=== PATIENT | female | born 1965 | race Caucasian/White ===

== ENCOUNTER 2024-05-18 10:21 | Outpatient (CLI) | payer MEDICAID, SELFPAY ==
[2024-05-18 10:43] LABS: Basophils Absolute Auto 0.05 K/mm3 (0.00-0.10); Basophils Percent Auto 0.5 % (0.0-1.0); Eosinophils Absolute Auto 0.32 K/mm3 (0.02-0.50); Eosinophils Percent Auto 3.5 % (1.0-6.0); Hematocrit 39.7 % (35.0-49.0); Hemoglobin 13.7 g/dL (12.0-15.0); Immature Granulocyte Absolute 0.04 K/mm3 (0.00-0.00); Immature Granulocyte Percent A 0.4 % (0.0-0.0); Lymphocytes Absolute Auto 2.95 K/mm3 (1.10-4.50); Lymphocytes Percent Auto 31.9 % (18.0-42.0); Mean Corpuscular HGB Conc 34.5 g/dL (32-36); Mean Corpuscular Hemoglobin 31.7 pg (27.0-31.0); Mean Corpuscular Volume 91.9 fL (78.0-102.0); Mean Platelet Volume 9.3 fl (9.2-11.8); Monocytes Absolute Auto 0.55 K/mm3 (0.10-0.90); Neutrophils Absolute Auto 5.33 K/mm3 (1.70-7.20); Neutrophils Percent Auto 57.7 % (50.0-70.0); Platelet Count Result 252 K/mm3 (150-420); Red Blood Count 4.32 M/mm3 (4.20-5.40); Red Cell Distribution Width 13.3 % (11.6-14.4); White Blood Count 9.2 K/mm3 (4.8-10.8)
[2024-05-18 11:22] LABS: Alanine Aminotransferase 23 U/L (14-59); Albumin Level 3.8 g/dL (3.4-5.0); Alkaline Phosphatase 74 U/L (46-116); Anion Gap 9 mmol/L (4-12); Aspartate Amino Transferase 25 U/L (15-37); Bilirubin,Total 0.8 mg/dL (0.00-1.00); Blood Urea Nitrogen 29 mg/dL (7-18); Calcium 9.6 mg/dL (8.5-10.1); Carbon Dioxide 29 mmol/L (21-32); Chloride 102 mmol/L (98-108); Cholesterol 157 mg/dL (0-200); Estimated Glomerular Filt Rate 41; Glucose 91 mg/dL (70-99); HDL Direct 60 mg/dL (40-60); LDL Cholesterol Calculated 79 mg/dL (<130); Osmolality Calculated 295 mOsm/kg (285-295); Potassium 4.3 mmol/L (3.5-5.1); Sodium 140 mmol/L (136-145); Total Protein 7.2 g/dL (6.4-8.2); Triglycerides 91 mg/dL (0-150)
== END 2024-05-18 10:22 | disposition home or self-care (01) ==
PROVIDERS: PCP Family Medicine; Visit Provider Family Medicine
DX: E03.9 Hypothyroidism, unspecified (principal); I10 Essential (primary) hypertension
CPT/HCPCS: 36415; 80053; 80061; 84443; 85025

== ENCOUNTER 2024-05-20 10:21 | Outpatient (CLI) | payer MEDICAID, SELFPAY ==
--- NOTE | ~2024-05-20 | CT_ITS ---
EXAMINATION:CT lung screening DATE: 05/20/2024 10:38 INDICATION: Personal history of nicotine dependence. Current smoker with 30 pack year history. TECHNIQUE: Computed tomography (CT) of the chest was performed without intravenous contrast. Automate d exposure control and iterative reconstruction technique were employed. The dose-length product (DLP ) was 103.74 mGy-cm. COMPARISON: None. FINDINGS: There is mild emphysema. There is a 2 mm nodule in right upper lobe. Calcified right lung n odules are consistent with old granulomatous disease. There is mild atelectasis bilaterally. There is peripheral septal thickening in right lower lobe. No pleural effusion. The heart size is normal. The re are coronary artery calcifications. No pericardial effusion. There is severe thoracic spondylosis. IMPRESSION: 1. Lung-RADS category 2: Benign appearance or behavior. Continue annual screening with noncontrast lo w-dose chest CT in 12 months. Reviewed, dictated and finalized at location A. TS ANNOUNCER IMPRESSION: 1. Lung-RADS category 2: Benign appearance or behavior. Continue annual screeni ng with noncontrast low-dose chest CT in 12 months.
== END 2024-05-20 10:22 | disposition home or self-care (01) ==
PROVIDERS: PCP Family Medicine; Visit Provider Family Medicine
DX: Z12.2 Encounter for screening for malignant neoplasm of respiratory organs (principal); Z87.891 Personal history of nicotine dependence
CPT/HCPCS: 71271

== ENCOUNTER 2024-05-28 13:13 | Outpatient (CLI) | payer OTHER, SELFPAY ==
--- NOTE | ~2024-05-28 | XR_ITS ---
Right Knee Technique: AP, lateral, and sunrise views were obtained. Clinical History: Pain Findings: No fracture or dislocation is seen. Osseous alignment is anatomic. Mild degenerative change s of medial and lateral compartment. There is a 9 mm loose body posterior to the distal femur mediall y. No joint effusion is seen. Impression: Degenerative changes with 9 mm loose body, as above. Reviewed, dictated and finalized at location . ERN PAINTER Impression: Degenerative changes with 9 mm loose body, as above.
== END 2024-05-28 13:14 | disposition home or self-care (01) ==
PROVIDERS: PCP Family Medicine; Visit Provider Family Medicine
DX: M25.561 Pain in right knee (principal); M23.41 Loose body in knee, right knee
CPT/HCPCS: 73562

== ENCOUNTER 2024-07-08 13:40 | Outpatient (CLI) | payer OTHER, SELFPAY ==
--- NOTE | ~2024-07-08 | MM_ITS ---
EXAMINATION: MM screening tj BI w danial HISTORY: Screening mammogram TECHNIQUE: Craniocaudal and mediolateral oblique 3-D tomosynthesis images were obtained and synthetic 2-D images were generated. CAD analysis was submitted and interpreted. COMPARISON: No prior mammogram is available for comparison at this institution. BREAST PARENCHYMAL COMPOSITION:Not Dense. The breasts are almost entirely fatty FINDINGS: No suspicious mass, calcification, or architectural distortion are identified in either romario ast to suggest malignancy. There has been no suspicious interval change. IMPRESSION: No mammographic evidence of malignancy. Recommend routine screening mammography in one year. BI-RADS Category 1: Negative Reviewed, dictated and finalized at location . O POOL SUPERVISOR
== END 2024-07-08 13:41 | disposition home or self-care (01) ==
PROVIDERS: PCP Family Medicine; Visit Provider Family Medicine
DX: Z12.31 Encounter for screening mammogram for malignant neoplasm of breast (principal)
CPT/HCPCS: 77063; 77067

== ENCOUNTER 2024-07-14 00:50 | Day surgery (SDC) | payer OTHER, SELFPAY ==
[2024-06-08 14:30] VITALS: BMI 28.3
--- NOTE | 2024-06-29 11:19 | SUR.PREOP ---
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 Pt will be rescheduled.
--- NOTE | 2024-07-01 13:40 | PC.NURSE ---
PT CALLED TO UPDATE NEW PROCEDURE DATE AND TIME, PT STATES UNDERSTANDING, PT STATES ALL MEDICAL HISTORY REMAINS THE SAME FROM PREVIOUS PAT CALL, CALL UPDATED. PT DENIES ANY QUESTIONS.
--- NOTE | 2024-07-13 10:06 | P.PNAN_ITS ---
Anes - Initial Pre Proc Eval Procedure: Operation Date: 07/14/24 11:00 Proposed Procedures p Screening Colonoscopy - Rohit Soto DO Date/Time: 07/13/24 10:06 Surgeon: Rohit Soto DO Pre Op Diagnosis: Screening for malignant neoplasm of colon Patient Data Age: 59 Gender: F Height: 1.6 m Weight: 72.6 kg Allergies Allergy/AdvReac Type Severity Reaction Status Date / Time No Known Allergies Allergy Verified 07/14/24 09:49 Home Medications ?Medication ?Instructions ?Recorded ?Confirmed ?Type albuterol sulfate 90 mcg/actuation 1 puff inhalation Q4H PRN 05/18/24 07/14/24 Rx aerosol inhaler shortness of breath or wheezing #8.5 grams fluticasone 100 mcg-salmeterol 50 1 inh inhalation Q12H #60 ea 05/18/24 07/14/24 Rx mcg/dose blistr powdr for inhalation (Advair Diskus) meloxicam 15 mg tablet 15 mg PO DAILY 05/18/24 07/14/24 History carvedilol 3.125 mg tablet 3.125 mg PO BID #180 tabs 06/15/24 07/14/24 Rx hydrochlorothiazide 25 mg tablet 25 mg PO DAILY #90 tabs 06/15/24 07/14/24 Rx lisinopril 20 mg tablet 20 mg PO DAILY #90 tabs 06/15/24 07/14/24 Rx atorvastatin 40 mg tablet 20 mg (1/2 x 40 mg) PO QHS #45 tabs 06/18/24 07/14/24 Rx Patient hx anesthesia problems: none Family hx anesthesia problems: none Results Review: All pre-operative results and documents have been reviewed as part of the pre- operative evaluation. [facility] Past Medical History Medical History (Updated 07/13/24 @ 10:07 by Russ Anne DO) Hepatitis C treated Hyperlipidemia COPD (chronic obstructive pulmonary disease) HTN (hypertension) Osteoarthritis CVA (cerebral vascular accident) 2 times Bursitis Family History Family History Mother Heart disease Father Alzheimer dementia Social History Social History Smoking packs per day: 0.5 Smoking cigarettes per day: 10.0 Years smoked: 50 Smoking pack-years: 25.00 Smoking status: Current every day smoker Tobacco type: cigarettes Second hand tobacco smoke exposure: Yes Alcohol intake: current Drinks per week: 21 Alcohol use details: 3 shots a day Substance use: current Substance use type: marijuana Other substance usage details: Every once in awhile Living arrangements: with family Spiritual care concerns: No Anes - Eval Final PreProcedure Day of Procedure 07/13/24 10:06 Patient weight: overweight Heart: regular rate and rhythm Lungs: clear to auscultation Airway: Mallampati scale class II Neurological: alert and oriented Last oral intake: >/= 8 hours ASA classification: III Emergent: no Anesthetic plan: proceed Anesthesia type and monitoring: general GIVS and standard monitoring Results Review: All pre-operative results and documents have been reviewed as part of the pre-operative evaluation. Informed Consent: The patient's anesthetic plan and its attendant risks and benefits were discussed with the patient/family/POA. Questions were solicited and answers provided to the satisfaction of the patient/family/POA.
[2024-07-14 09:40] VITALS: BP 151/95; PULSE 77; RESP 16; TEMP 36.3; O2SAT 99; BMI 29.7
[2024-07-14] MEDS: LACTATED RINGERS 1,000 ML 150 ML IV CONT (10:02)
--- NOTE | 2024-07-14 10:33 | P.HP_ITS ---
H&P: HPI History of Present Illness Date/Time: 07/14/24 10:33 Chief Complaint: positive Cologuard Narrative: this is a 59-year-old woman who presents for colonoscopy. She has never had a colonoscopy before. She denies any hematochezia or melena. She denies any family history of colon cancer. She recently had a Cologuard test which was positive. Review of Systems Review of Systems: All systems reviewed & are unremarkable except as noted in HPI and below Constitutional: Constitutional: Denies chills, Denies fever(s), Denies headache(s) and Denies weight loss Eyes: Eyes: Denies change in vision ENT: Denies dizziness, Denies headache(s), Denies neck mass and Denies throat swelling Cardiovascular: Cardiovascular: Denies chest pain, Denies lightheadedness and Denies dyspnea Respiratory: Respiratory: Denies cough, Denies dyspnea and Denies wheezing Gastrointestinal: Gastrointestinal: Denies abdominal pain, Denies change in bowel habits, Denies nausea and Denies vomiting Genitourinary: Genitourinary: Denies hematuria and Denies dysuria Musculoskeletal: Musculoskeletal: Reports as per HPI Integumentary/Breasts: Skin/Breast: Reports as per HPI Neurologic: Denies dizziness and Denies headache(s) Allergic/Immunologic: Allergic/Immunologic: Denies throat swelling and Denies wheezing [facility] Past Medical History Medical History (Updated 07/13/24 @ 10:07 by Russ Anne DO) Hepatitis C treated Hyperlipidemia COPD (chronic obstructive pulmonary disease) HTN (hypertension) Osteoarthritis CVA (cerebral vascular accident) 2 times Bursitis Family History Family History Mother Heart disease Father Alzheimer dementia Social History Social History Smoking packs per day: 0.5 Smoking cigarettes per day: 10.0 Years smoked: 50 Smoking pack-years: 25.00 Smoking status: Current every day smoker Tobacco type: cigarettes Second hand tobacco smoke exposure: Yes Alcohol intake: current Drinks per week: 21 Alcohol use details: 3 shots a day Substance use: current Substance use type: marijuana Other substance usage details: Every once in awhile Living arrangements: with family Spiritual care concerns: No Meds Home Medications and Allergies Home Medications ?Medication ?Instructions ?Recorded ?Confirmed ?Type albuterol sulfate 90 mcg/actuation 1 puff inhalation Q4H PRN 05/18/24 07/14/24 Rx aerosol inhaler shortness of breath or wheezing #8.5 grams fluticasone 100 mcg-salmeterol 50 1 inh inhalation Q12H #60 ea 05/18/24 07/14/24 Rx mcg/dose blistr powdr for inhalation (Advair Diskus) meloxicam 15 mg tablet 15 mg PO DAILY 05/18/24 07/14/24 History carvedilol 3.125 mg tablet 3.125 mg PO BID #180 tabs 06/15/24 07/14/24 Rx hydrochlorothiazide 25 mg tablet 25 mg PO DAILY #90 tabs 06/15/24 07/14/24 Rx lisinopril 20 mg tablet 20 mg PO DAILY #90 tabs 06/15/24 07/14/24 Rx atorvastatin 40 mg tablet 20 mg (1/2 x 40 mg) PO QHS #45 tabs 06/18/24 07/14/24 Rx Allergies Allergy/AdvReac Type Severity Reaction Status Date / Time No Known Allergies Allergy Verified 07/14/24 09:49 Vital Signs Vital Signs - 24 hr 07/14/24 09:40 Temperature 97.3 F L Pulse Rate 77 Respiratory Rate 16 Blood Pressure 151/95 H Pulse Oximetry 99 Oxygen Delivery Room Air Exam Const: General: no acute distress and alert Orientation/consciousness: patient oriented x3 HENMT: Head: normocephalic and atraumatic Ears: hearing grossly normal bilaterally Face/Nose/Sinus: Normal nares present Mouth: Yes Normal oral and palatal mucosa present Eyes: Periorbital: periorbital findings normal Sclera: sclerae normal EOM: EOMs intact bilaterally Neck: Neck: normal visual inspection, no lymphadenopathy and trachea midline Chest: Chest palpation & inspection: normal inspection of the chest Resp: Effort & Inspection: normal respiratory effort Auscultation: clear to auscultation bilaterally Cardio: Jugular venous distension: no JVD Rate: regular rate Rhythm: regular rhythm Heart sounds: S1 normal heart sound present and S2 normal heart sound present Peripheral pulses: Peripheral pulses 2+ throughout GI: Inspection: normal to inspection GI Palp: Yes Soft to palpation, No Tenderness to palpation present (GI), No Guarding due to palpation present (GI) and No Rebound tenderness present Percussion: Yes normal to percussion Auscultation: normal bowel sounds : General: Yes no CVA tenderness Back/Spine/Pelvis: Back: no CVA tenderness Neuro: General: patient oriented x3, no focal motor deficits and CN's II-XI intact bilaterally Cognition (Neuro): normal cognition Speech: normal speech Motor exam (neuro): 5/5 motor strength present throughout Extrem: General: capillary refill normal and no clubbing, cyanosis or edema Assessment and Plan Assessment and plan (1) Positive colorectal cancer screening using Cologuard test: Code(s): R19.5 - Other fecal abnormalities Status: Acute Assessment and Plan: I have recommended colonoscopy. I have discussed the procedure, risks, benefits, and alternatives. Questions were answered. Patient is agreeable to proceed.
[2024-07-14 10:59] VITALS: BP 110/69; PULSE 69; RESP 18; O2SAT 100
[2024-07-14 11:09] VITALS: BP 128/70; PULSE 67; RESP 20; O2SAT 100
[2024-07-14 11:19] VITALS: BP 150/87; PULSE 70; RESP 17; O2SAT 100
== END 2024-07-14 11:36 | disposition home or self-care (01) ==
PROVIDERS: PCP Family Medicine; Visit Provider Surgery
PROC: 0DJD8ZZ Inspection of Lower Intestinal Tract, Via Natural or Artificial Opening Endoscopic (ICD-10-PCS; CPT 45378; principal; 2024-07-14 11:00)
DX: D12.4 Benign neoplasm of descending colon (principal); E78.5 Hyperlipidemia, unspecified; I10 Essential (primary) hypertension; J44.9 Chronic obstructive pulmonary disease, unspecified; M19.90 Unspecified osteoarthritis, unspecified site; F17.210 Nicotine dependence, cigarettes, uncomplicated; Z79.51 Long term (current) use of inhaled steroids; Z86.79 Personal history of other diseases of the circulatory system; Z82.49 Family history of ischemic heart disease and other diseases of the circulatory system
CPT/HCPCS: 45380; 88305; J2003; J2704; J7120

== ENCOUNTER 2024-09-08 10:15 | Outpatient (RCR) | payer OTHER, SELFPAY ==
--- NOTE | 2024-09-08 11:01 | OPREHPOC ---
Outpatient Therapy Plan of Care This is a Multidisciplinary Plan of Care that may contain components documented by all disciplines (PT, OT, and ST.) PT Problem 1 PT Problem #1 Knowledge Deficit PT Goal 1 Goal / Goal Update 1. independent and compliant with HEP Target Visit 6 PT Problem 2 PT Problem #2 Pain PT Goal 1 Goal / Goal Update 1. decrease pain at worst to 3/10 or less in the R hip and knee Target Visit 12 PT Problem 3 PT Problem #3 Impaired Strength PT Goal 1 Goal / Goal Update 1. improve bilateral hip strength to 4+/5 or better overall Target Visit 12 PT Problem 4 PT Problem #4 Impaired Functional Mobility PT Goal 1 Goal / Goal Update 1. patient to stand for 1 hour without increased pain 2. patient to perform 30 minutes of standing exercise without increased pain or needing rest 3. LEFS to display 30% or less functional deficits Target Visit 12
--- NOTE | 2024-09-08 11:01 | PTOPEVAL1 ---
Assessment and note entered by JT File, PT Evaluation Information Assessment Status Evaluation ICD-10 Condition Codes (PT) Pain in right hip M25.551,Pain in right knee M25. 561 Other ICD-10 Condition Codes ( M17.11 PT) Onset 09/03/24 Subjective Information patient reports she has had pain in the R hip and R knee for a long time. she reports lately it has been getting worse. she reports she is unable to walk as far, and getting up and down really bothers the knee. 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 she reports she now has a shorter R LE, has bursitis in the R hip, and has OA in the R knee and hip. she reports she has increased pain with being up on her feet standing and walking more than 20 minutes. she reports she had xrays of the hip and the knee. Reported Pain Level Pain Score 0,0: Self Report Assessment PT Clinical Summary mrs. yanes is a 59 yo woman who presents to skilled PT services for evaluation and treatment of R hip and R knee pain. she displays decreased R knee rom, decreased R hip rom, and weakness of the bilateral hips. she dispays signs and symptoms consistent with R knee OA, and lumbar radiculopathy/R hip bursitis. she would benefit from continued skilled PT to address her objective /functional deficits and return to prior level functional activity performance to improve her quality of life. Plan of Care Interventions Electrical Stimulation,Gait Training,Hot Pack/Cold Pack,Manual Therapy,Neuro Re-education,Patient/ Caregiver Education,Therapeutic Activities, Therapeutic Exercise PT Services Indicated Yes Treatment Frequency and 3x weekly for 12 visits Duration These treatments will address the objective and functional deficits as defined above. The patient will be advanced safely and appropriately in order for the patient to progress towards his/her prior level of function. Additional exercises will be introduced and as well as a comprehensive home exercise program upon discharge, if needed, ?to ensure carryover of functional gains achieved in the clinic. This treatment plan has been reviewed and agreement upon by the patient.
== END 2024-12-07 23:59 | disposition home or self-care (01) ==
LOC: CHSPT 10:15
PROVIDERS: Visit Provider Nurse Practitioner Family
DX: M25.561 Pain in right knee (principal); M25.551 Pain in right hip; M17.11 Unilateral primary osteoarthritis, right knee
CPT/HCPCS: 97110; 97140; 97161; 97530

== ENCOUNTER 2025-02-15 08:57 | Outpatient (CLI) | payer OTHER, SELFPAY ==
--- NOTE | ~2025-02-15 | CT_ITS ---
EXAMINATION: CTA BRAIN/CAROTID DATE: 02/15/2025 10:02 INDICATION: Cerebral aneurysm TECHNIQUE: Computed tomographic angiography (CTA) of the head and neck was performed with 100 mL Omnipaque-350 intravenous contrast. Multiplanar reconstructions and maximum intensity projection 3D-reconstructions of the carotid arteries and of the intracranial arteries were created by the technologist on a separate workstation. Precontrast CT of the head was also obtained. Automated exposure control and iterative reconstruction technique were employed.The dose-length product was 1697.85 mGy-cm. COMPARISON: None. FINDINGS: Head: Postoperative change of prior right frontotemporal craniotomy with plate and screw fixation. Small region of encephalomalacia consistent with chronic infarcts in the bilateral frontal lobes, 2 on the left and one on the right. There is also a small old lacunar infarct at the left thalamus. No acute int racranial hemorrhage, acute infarction or abnormal extra axial fluid collection. There is additional mild scattered white matter hypoattenuation consistent with chronic small vessel ischemic disease. Ventricles are normal and symmetric. No mass/mass effect. No abnormally enhancing brain lesions on the postcontrast imaging. The orbits, paranasal sinuses and mastoid air cells are normal. Intracranial arteries The dominant right vertebral artery appears to be the sole supply the basilar artery with a diminutive left vertebral artery terminating at the left posterior inferior cerebellar artery. There is no hemodynamically significant stenosis in the vertebral, basilar and internal carotid arteries. Both A1 and P1 segments are patent. There also patent intercommunicating and left posterior communicating arteries. Aneurysm clip at the proximal right M2 segment. There are no aneurysms identified. Cerebral arterial arborization appears symmetric. Carotid arteries: The aortic arch and the great vessels arising from the arch are normal in caliber with no dissection or hemodynamically significant stenosis. There is 60% stenosis of the right carotid bulb relative to normal distal artery lumen diameter (NASCET criteria). There the multiple small linear densities about the left carotid bulb suggesting prior carotid endarterectomy. There is 30% stenosis at the distal aspect of the left carotid bulb relative to normal distal artery lumen diameter which appears to result primarily from a kink in the course of the artery as opposed to atherosclerosis. Mild emphysema. Calcified right upper lobe nodule consistent with old granulomatous disease. There is a 60% stenosis a t the origin of the dominant right vertebral artery. IMPRESSION: 1. Postoperative change of prior right frontotemporal craniotomy and aneurysm clipping at the proximal right M2 segment. Otherwise unremarkable cerebral CT angiogram with no aneurysm, thrombosis or hemodynamically significant stenosis. 2. 60% stenosis of the right carotid bulb relative to normal distal artery lumen diameter (NASCET criteria). 3. Changes suggesting prior left carotid endarterectomy with 30% stenosis of the distal left carotid bulb relative to normal distal artery lumen diameter which appears to result primarily from a kink in the course of the artery. 4. 60% stenosis at the origin of the dominant right vertebral artery which appears to be the sole supply to the basilar artery. 5. Small old infarcts in the bilateral frontal lobes. No acute intracranial process or abnormally enhancing brain lesions. Reviewed, dictated and finalized at location A. IMPRESSION: 1. Postoperative change of prior right frontotemporal craniotomy and aneurysm c lipping at the proximal right M2 segment. Otherwise unremarkable cerebral CT an giogram with no aneurysm, thrombosis or hemodynamically significant stenosis. 2. 60% stenosis of the right carotid bulb relative to normal distal artery lume n diameter (NASCET criteria). 3. Changes suggesting prior left carotid endarterectomy with 30% stenosis of th e distal left carotid bulb relative to normal distal artery lumen diameter whic h appears to result primarily from a kink in the course of the artery. 4. 60% stenosis at the origin of the dominant right vertebral artery which appe ars to be the sole supply to the basilar artery. 5. Small old infarcts in the bilateral frontal lobes. No acute intracranial pro cess or abnormally enhancing brain lesions.
[2025-02-15 09:26] LABS: Estimated Glomerular Filt Rate 56
--- OUTSIDE RECORDS SUMMARY | 2025-02-15 09:29 | XMS_ITS | Clinical Summary ---
Author Organization [facility] Address [address] [place] [address] Care Team Providers Care Fish Hatchery Assistant Name Role Phone Unavailable Primary Care Provider Unavailabl e Source Comments [facility],non-owned Affiliates and Associated Physician Practices is amultiple site organization consisting of ambulatory clinics and hospital sitesin [place], [place] and [place]. This disclosure is being madepursuant to the Care Everywhere program and may not contain all information available regarding this patient. Last updated 18.[facility] Allergies No known active allergies Medications * Be aware that medications may not be up to date on this document. Alwaysverify current medications with the patient. lisinopril-hydro CHLOROthiazide (PRINZIDE; ZESTORETIC) 20-25 MG tablet Take 1 Tab by mouth once daily Active Social History Tobacco Use Types Packs/Day Years Used Date Smoking Tobacco: Every Day Cigarettes Alcohol Use Standard Drinks/Week Comments Yes 2 (1 standard drink = 0.6 oz pur e alcohol) Comments Unknown Sex and Gender Information Value Date Recorded Sex Assigned at Not on file Legal Sex Female 11:00 AM CDT Gender Identity Not on file Sexual Orientation Not on file Last Filed Vital Signs Vital Sign Reading Time Taken Comments Blood Pressure 194/88 02/07/2016 1:05 PM CDT Pulse 70 02/07/2016 1:05 PM CDT Temperature 36.9 C (98.4 F) 02/07/2016 11:02 AM CDT Respiratory Rate 18 02/07/2016 1:05 PM CDT Oxygen Saturation 97% 02/07/2016 1:05 PM CDT Inhaled Oxygen Concentration - - Weight 59 kg (130 lb) 02/07/2016 11:02 AM CDT Height 160 cm (5' 3) 02/07/2016 11:02 AM CDT Body Mass Index 23.03 02/07/2016 11:02 AM CDT Plan of Treatment Health Maintenance Due Date Last Done Comments COLOGUARD (AGES 45-75) - COL ON CA SCREENING 1963 COLON MONITORING 1963 COLONOSCOPY - COLON CA SCREENING 1963 CT COLONOGRAPHY - COLON CA SCREENING 1963 Colorectal Cancer Screening 1963 FIT - COLON CA SCREENING 1963 FLEX SIG - COLON CA SCREENING 1963 LIPID TESTING 1963 MAMMOGRAM 1963 HIV SCREENING 1978 HEPATITIS C SCREENING 04/03/1981 DTAP/TDAP/TD VACCINES (1 - Tdap) 1982 PNEUMOCOCCAL VACCINE 50+ (1 of 2 - PCV) 1982 PAP SMEAR 1984 ZOSTER VACCINE (1 of 2) 2013 COVID-19 VACCINE ( - 2023-2 5 season) 2024 DEPRESSION SCREENING 06/24/2024 INFLUENZA VACCINE (#1) 2025 Respiratory Syncytial Virus (RSV) Vaccine Pt: or over 60 yrs (1 - 1-dose 75+ series) 2038 HEPATITIS B VACCINE Aged Out No longe r eligible based on patient's age to complete this topic HIB VACCINE Aged Out No longer eligi ble based on patient's age to complete this topic HPV VACCINE Aged Out No longer eligi ble based on patient's age to complete this topic MENINGOCOCCAL (Group B) VACC INE SHARED DECISION-MAKING Aged Out No longer eligibl e based on patient's age to complete this topic MENINGOCOCCAL GROUPS A/C/Y/W VACCINE Aged Out No longer eligible b ased on patient's age to complete this topic Insurance [facility] SELF PAY NO INSURANCE Member Subscriber Plan / Payer (Ef fective for All Dates) Name:Aparna Montes Member ID:Not on file Relation to Subscriber:Not on file Name:APARNA MONTES Subscriber ID:Not on file (Home) Address: [address] [place] [phone] Payer ID:Not on file Group ID:Not on file Type:Self Pay Address: [place], [place]
== END 2025-02-15 08:58 | disposition home or self-care (01) ==
LOC: CHSIMG 08:58
PROVIDERS: PCP Family Medicine; Visit Provider Family Medicine
DX: I67.1 Cerebral aneurysm, nonruptured (principal); Z98.890 Other specified postprocedural states; I65.23 Occlusion and stenosis of bilateral carotid arteries; Z86.73 Personal history of transient ischemic attack (TIA), and cerebral infarction without residual deficits
CPT/HCPCS: 70496; 70498; Q9967